=== PATIENT | female | born 1970 | race Caucasian/White ===

== ENCOUNTER 2019-09-30 20:49 | Inpatient (IN) | payer MEDICAID, OTHER ==
[~2019-09-30] VITALS: Ht 180.3 cm; Wt 108.3 kg
[2019-09-30] MEDS ORDERED: DIPH,PERTUSS(ACELL),TET VAC/PF 0.5 ML IM-VACC ONE ×2 (21:30→21:49)
--- NOTE | 2019-09-30 21:47 | NUR ---
Pt resting on gurney. Pt noted to be having anxiety and reports that she takes medications for anxiety and depression, but has not taken them today. Pt given reassurance and is aware of and agreeable to plan of care. Pt reports left chin skin problem worsened within the last 24 hours. Pt reports it drained on its own. Pt noted to have large red, and swollen area on left side of chin.
--- NOTE | 2019-09-30 22:00 | NUR ---
PA at bedside. Tetanus vaccine given. US at bedside.
--- NOTE | 2019-09-30 23:00 | NUR ---
Pt alert and resting at bedside. Friend at bedside.
[2019-09-30] MEDS ORDERED: ONDANSETRON 2MG/ML, 2ML ONE (23:09)
[2019-09-30] MEDS ORDERED: MORPHINE SULFATE 4 MG/ML, 1ML ONE (23:10)
--- NOTE | 2019-09-30 23:25 | NUR ---
PIV placed. Labs and cultures drawn. Admitting MD at bedside.
[2019-09-30] MEDS ORDERED: LISI-167 PO (23:27)
[2019-09-30] MEDS ORDERED: SERT20OR PO (23:29)
[2019-09-30] MEDS ORDERED: [UNRECOGNIZED DRUG - CODE] PO (23:29)
[2019-09-30] MEDS ORDERED: BUPR150T8 PO (23:29)
[2019-09-30] MEDS ORDERED: VANCOMYCIN PER PHARMACY MC ONE (23:30)
[2019-09-30] MEDS ORDERED: VANCOMYCIN 2,000 MG in SODIUM CHLORIDE 0.9% 500 ML IV ONE (23:30)
[2019-09-30] MEDS ORDERED: ONDANSETRON 2MG/ML, 2ML IVPush ONE (23:30)
[2019-09-30] MEDS ORDERED: SODIUM CHLORIDE FLUSH 10ML SYR IVF ONE (23:30)
[2019-09-30] MEDS ORDERED: SODIUM CHLORIDE 0.9% 1,000ML IVBOLUS ONE (23:30)
[2019-09-30] MEDS: MORPHINE SULFATE 4 MG/ML, 1ML IV PRN (23:33)
[2019-09-30 23:37] LABS: BASOPHILS # (AUTO) 0.03 x10^3/uL (0-0.1); BASOPHILS % (AUTO) 0 % (0-1); EOSINOPHILS # (AUTO) 0.39 x10^3/uL (0-0.4); EOSINOPHILS % (AUTO) 3 % (1-7); LYMPHOCYTES # (AUTO) 3.12 x10^3/uL (1-3.4); LYMPHOCYTES % (AUTO) 26 % (22-44); MD NO; MEAN CORPUSCULAR HEMOGLOBIN 25.6 pg (27.0-34.8); MEAN CORPUSCULAR HGB CONC 32.4 g/dL (32.4-35.8); MEAN CORPUSCULAR VOLUME 78.8 fL (80-100); MEAN PLATELET VOLUME 9.5 fL (7.4-10.4); MONOCYTES # (AUTO) 0.78 x10^3/uL (0.2-0.8); MONOCYTES % (AUTO) 7 % (2-9); NEUTROPHILS # (AUTO) 7.71 x10^3/uL (1.8-6.8); NEUTROPHILS % (AUTO) 64 % (42-75); PLATELET COUNT 306 x10^3/uL (130-400); RED BLOOD COUNT 5.09 x10^6/uL (3.82-5.3); RED CELL DISTRIBUTION WIDTH 16.7 % (9.6-15.2)
[2019-09-30 23:46] LABS: ALANINE AMINOTRANSFERASE 26 U/L (12-78); ALBUMIN 3.5 g/dL (3.4-5.0); ANION GAP 6 mmol/L (5-15); CHLORIDE 107 mmol/L (98-107); CREATININE 1.02 mg/dL (0.55-1.02)
--- NOTE | 2019-09-30 23:46 | NUR ---
Pt medicated per MAY. VS retaken. BP remains high. Admitting MD aware. Pt noted to be hyperverbal.
[2019-09-30 23:49] LABS: ALKALINE PHOSPHATASE 98 U/L (45-117); BILIRUBIN,TOTAL 0.4 mg/dL (0.2-1.0); TOTAL PROTEIN 7.8 g/dL (6.4-8.2)
--- NOTE | 2019-09-30 23:53 | NUR ---
Report given to EUGENIO Vigil
[2019-10-01] MEDS ORDERED: METHOCARBAMOL 500 MG TABLET PO PRN
[2019-10-01] MEDS ORDERED: ASA/APAP/ CAFFEINE TABLET PO PRN
[2019-10-01] MEDS ORDERED: DOCUSATE 100 MG CAPSULE PO PRN
[2019-10-01] MEDS ORDERED: morphine SULFATE 10 MG/ML, 1ML IVPush PRN
[2019-10-01] MEDS ORDERED: VANCOMYCIN PER PHARMACY MC PRN
[2019-10-01] MEDS ORDERED: ACETAMINOPHEN 325 MG TABLET PO PRN
[2019-10-01] MEDS ORDERED: GUAIFENESIN/DM 200-20MG, 10ML UDC PO PRN
[2019-10-01] MEDS ORDERED: TEMAZEPAM 15 MG CAPSULE PO PRN
[2019-10-01] MEDS ORDERED: hydrALAzine 20 MG/ML, 1ML IVPush PRN
[2019-10-01] MEDS ORDERED: MORPHINE SULFATE 4 MG/ML, 1ML ONE (00:04)
[2019-10-01] MEDS: MORPHINE SULFATE 4 MG/ML, 1ML IV PRN (00:06)
--- NOTE | 2019-10-01 00:10 | NUR ---
Pt reports first dose of morphine didn't help. Second dose given. Pt remains on pulse ox/HR monitor.
--- NOTE | 2019-10-01 00:15 | NUR ---
Pt transported to floor with plumbing technician.
[2019-10-01 00:37] VITALS: BP 171/119
[2019-10-01] MEDS: ENOXAPARIN 40 MG/0.4 ML SQ SCH (00:56)
[2019-10-01] MEDS: LISINOPRIL 10 MG TABLET PO SCH ×2 (00:57→20:04)
[2019-10-01] MEDS ORDERED: PHARMACOKINETIC CONSULTATION MC ONE (01:00)
[2019-10-01] MEDS ORDERED: PHARMACOKINETIC MONITORING MC PRN (01:00)
[2019-10-01] MEDS: PIPERACILLIN/TAZO/PMX 3.375GM 50 ML IV SCH ×3 (01:32→21:32)
[2019-10-01] MEDS: OXYcodone/APAP 5/325MG TABLET PO PRN ×2 (01:51→20:59)
[2019-10-01 06:44] LABS: BASOPHILS % (AUTO) 1 % (0-1); EOSINOPHILS # (AUTO) 0.35 x10^3/uL (0-0.4); EOSINOPHILS % (AUTO) 3 % (1-7); LYMPHOCYTES # (AUTO) 1.66 x10^3/uL (1-3.4); LYMPHOCYTES % (AUTO) 15 % (22-44); MD NO; MEAN CORPUSCULAR HEMOGLOBIN 24.7 pg (27.0-34.8); MEAN CORPUSCULAR HGB CONC 30.6 g/dL (32.4-35.8); MEAN CORPUSCULAR VOLUME 80.5 fL (80-100); MEAN PLATELET VOLUME 9.3 fL (7.4-10.4); MONOCYTES # (AUTO) 0.63 x10^3/uL (0.2-0.8); MONOCYTES % (AUTO) 6 % (2-9); NEUTROPHILS # (AUTO) 8.31 x10^3/uL (1.8-6.8); NEUTROPHILS % (AUTO) 75 % (42-75); PLATELET COUNT 229 x10^3/uL (130-400); RED BLOOD COUNT 4.27 x10^6/uL (3.82-5.3); RED CELL DISTRIBUTION WIDTH 16.9 % (9.6-15.2)
[2019-10-01 06:54] LABS: ANION GAP 2 mmol/L (5-15); CALCIUM 7.8 mg/dL (8.5-10.1); CHLORIDE 110 mmol/L (98-107); CREATININE 0.78 mg/dL (0.55-1.02); IRON LEVEL 31 mcg/dL (50-170)
[2019-10-01 07:04] LABS: % IRON SATURATION 8 % (20-55); TOTAL IRON BINDING CAPACITY 382 mcg/dL (250-450); TRANSFERRIN 302 mg/dL (200-360)
[2019-10-01 07:08] VITALS: BP 121/78
[2019-10-01] MEDS ORDERED: MORPHINE SULFATE 4 MG/ML, 1ML IVPush PRN (10:00)
[2019-10-01] MEDS: IRON SUCROSE COMPLEX 100MG/5ML IV SCH (10:17)
[2019-10-01] MEDS: SODIUM CHLORIDE 0.9% 1,000 ML IV SCH ×2 (10:18→21:32)
[2019-10-01] MEDS: KETOROLAC 30 MG/1 ML IVPush PRN (10:31)
[2019-10-01] MEDS: ONDANSETRON 2MG/ML, 2ML IVPush PRN (10:31)
[2019-10-01 12:58] VITALS: BP 109/64
[2019-10-01] MEDS: VANCOMYCIN 2,000 MG in SODIUM CHLORIDE 0.9% 500 ML IV SCH (17:17)
[2019-10-01] MEDS: MUPIROCIN OINT 2%, 1 GM APPL. TP SCH (17:19)
[2019-10-01 18:45] VITALS: BP 143/89
[2019-10-01] MEDS ORDERED: LORazepam 2 MG/ML, 1ML IVPush ONE (20:30)
[2019-10-02] MEDS: ENOXAPARIN 40 MG/0.4 ML SQ SCH
[2019-10-02 00:53] VITALS: BP 127/82
[2019-10-02] MEDS: SODIUM CHLORIDE 0.9% 1,000 ML IV SCH (05:28)
[2019-10-02] MEDS: PIPERACILLIN/TAZO/PMX 3.375GM 50 ML IV SCH ×2 (05:28→13:32)
[2019-10-02] MEDS: MUPIROCIN OINT 2%, 1 GM APPL. TP SCH (05:28)
[2019-10-02 05:48] LABS: CALCIUM 8.2 mg/dL (8.5-10.1)
[2019-10-02 05:49] LABS: CREATININE 0.68 mg/dL (0.55-1.02)
[2019-10-02 06:07] LABS: ANION GAP 7 mmol/L (5-15); CHLORIDE 110 mmol/L (98-107)
[2019-10-02 06:12] LABS: BASOPHILS # (AUTO) 0.08 x10^3/uL (0-0.1); BASOPHILS % (AUTO) 1 % (0-1); EOSINOPHILS # (AUTO) 0.37 x10^3/uL (0-0.4); EOSINOPHILS % (AUTO) 5 % (1-7); LYMPHOCYTES # (AUTO) 1.81 x10^3/uL (1-3.4); LYMPHOCYTES % (AUTO) 23 % (22-44); MD NO; MEAN CORPUSCULAR HEMOGLOBIN 25.1 pg (27.0-34.8); MEAN CORPUSCULAR HGB CONC 31.4 g/dL (32.4-35.8); MEAN PLATELET VOLUME 9.8 fL (7.4-10.4); MONOCYTES # (AUTO) 0.47 x10^3/uL (0.2-0.8); MONOCYTES % (AUTO) 6 % (2-9); NEUTROPHILS # (AUTO) 5.13 x10^3/uL (1.8-6.8); NEUTROPHILS % (AUTO) 65 % (42-75); PLATELET COUNT 195 x10^3/uL (130-400); RED BLOOD COUNT 4.44 x10^6/uL (3.82-5.3)
[2019-10-02 06:13] LABS: AMPHETAMINE SCREEN, URINE Positive (Negative); BARBITURATE SCREEN, URINE Negative (Negative); BENZODIAZEPINE SCREEN, URINE Positive (Negative); CANNABINOID SCREEN, URINE Negative (Negative); COCAINE SCREEN, URINE Negative (Negative); METHADONE SCREEN, URINE Negative (Negative); OPIATE SCREEN, URINE Positive (Negative)
[2019-10-02 06:44] VITALS: BP 139/74
[2019-10-02] MEDS: IRON SUCROSE COMPLEX 100MG/5ML IV SCH (10:34)
[2019-10-02] MEDS: VANCOMYCIN 2,000 MG in SODIUM CHLORIDE 0.9% 500 ML IV SCH (11:14)
[2019-10-02] MEDS ORDERED: DOXY100T23 PO (12:11)
[2019-10-02] MEDS ORDERED: AMOX1TAB64 PO (12:12)
[2019-10-02] MEDS: ONDANSETRON 2MG/ML, 2ML IVPush PRN (12:58)
[2019-10-02] MEDS: KETOROLAC 30 MG/1 ML IVPush PRN (12:58)
[2019-10-02 13:40] VITALS: BP 153/95
[2019-10-03] MEDS ORDERED: ARIP2TAB2 PO (07:14)
[2019-10-03] MEDS ORDERED: BUPR300T94 PO (07:14)
[2019-10-03] MEDS ORDERED: SERT100T32 PO (07:14)
== END 2019-10-02 17:22 | disposition home or self-care (01) | DRG 872 ==
LOC: ED 22:22 → EDIP 23:09 → 3N 10-01 00:16
PROVIDERS: ADMIT Internal Medicine; ATTEND Hospitalist
DX: A41.9 Sepsis, unspecified organism (principal); L03.211 Cellulitis of face; I10 Essential (primary) hypertension; F41.9 Anxiety disorder, unspecified; F32.9 Major depressive disorder, single episode, unspecified; F17.210 Nicotine dependence, cigarettes, uncomplicated; D72.829 Elevated white blood cell count, unspecified; R00.0 Tachycardia, unspecified; D50.9 Iron deficiency anemia, unspecified; E66.9 Obesity, unspecified; Z68.31 Body mass index [BMI] 31.0-31.9, adult; Z79.899 Other long term (current) drug therapy
CPT/HCPCS: 36415; 76536; 80048; 80053; 80307; 82728; 83540; 83550; 83605; 84443; 84466; 85025; 87040; 87070; 87077; 87186; 87205; 90471; 90715; 93005; 96374; 99285; G0378; J1650; J1756; J1885; J2405; J2543; J3370; J0360; J2270; J7030; J7040

== ENCOUNTER 2019-10-03 05:00 | Inpatient (IN) | payer OTHER ==
[~2019-10-03] VITALS: Ht 180.3 cm; Wt 100.4 kg
[~2019-10-03 05:00] MED LIST: AMOX1TAB64 PO; BUPR150T8 PO; DOXY100T23 PO; LISI-167 PO; SERT20OR PO; [UNRECOGNIZED DRUG - CODE] PO
--- NOTE | 2019-10-03 05:35 | NUR ---
C/O SOB X1 DAY, PLACED ON CARDIAC AND VITALS SIGNS MONITORS. O2 SAT 89% ON RA. PLACED ON 2L NC, NOW 98%.
[2019-10-03] MEDS ORDERED: ALBUTEROL/IPRATROPIUM 2.5MG/0.5MG, 3 ML ONE (05:57)
[2019-10-03] MEDS ORDERED: FUROSEMIDE 20 MG/2 ML IV ONE (06:00)
[2019-10-03] MEDS ORDERED: LABETALOL 5MG/ML, 20ML IVPush ONE ×2 (06:00→07:30)
[2019-10-03] MEDS ORDERED: ALBUTEROL/IPRATROPIUM 2.5MG/0.5MG, 3 ML NEB ONE (06:00)
[2019-10-03] MEDS ORDERED: NITROGLYCERIN OINT 2%, 1GM TP ONE ×2 (06:00→06:37)
[2019-10-03] MEDS ORDERED: LABETALOL 5MG/ML, 20ML ONE (06:04)
[2019-10-03 06:36] LABS: BASOPHILS # (AUTO) 0.18 x10^3/uL (0-0.1); BASOPHILS % (AUTO) 2 % (0-1); EOSINOPHILS # (AUTO) 0.15 x10^3/uL (0-0.4); EOSINOPHILS % (AUTO) 2 % (1-7); LYMPHOCYTES # (AUTO) 1.45 x10^3/uL (1-3.4); LYMPHOCYTES % (AUTO) 19 % (22-44); MD NO; MEAN CORPUSCULAR HEMOGLOBIN 25.4 pg (27.0-34.8); MEAN CORPUSCULAR HGB CONC 31.6 g/dL (32.4-35.8); MEAN CORPUSCULAR VOLUME 80.4 fL (80-100); MEAN PLATELET VOLUME 9.2 fL (7.4-10.4); MONOCYTES # (AUTO) 0.56 x10^3/uL (0.2-0.8); MONOCYTES % (AUTO) 7 % (2-9); NEUTROPHILS # (AUTO) 5.51 x10^3/uL (1.8-6.8); NEUTROPHILS % (AUTO) 70 % (42-75); PLATELET COUNT 217 x10^3/uL (130-400); RED CELL DISTRIBUTION WIDTH 16.2 % (9.6-15.2)
[2019-10-03] MEDS ORDERED: FUROSEMIDE 20 MG/2 ML ONE (06:37)
[2019-10-03 06:48] LABS: ALANINE AMINOTRANSFERASE 21 U/L (12-78); ALBUMIN 2.9 g/dL (3.4-5.0); ANION GAP 5 mmol/L (5-15); CALCIUM 8.3 mg/dL (8.5-10.1); CHLORIDE 108 mmol/L (98-107)
[2019-10-03 06:53] LABS: ALKALINE PHOSPHATASE 79 U/L (45-117); BILIRUBIN,TOTAL 0.4 mg/dL (0.2-1.0); TOTAL PROTEIN 6.8 g/dL (6.4-8.2); TROPONIN I 0.064 ng/mL (0.000-0.045)
[2019-10-03] MEDS ORDERED: ASPIRIN 81 MG TABLET CHEW PO ONE (07:00)
--- NOTE | 2019-10-03 07:03 | NUR ---
REPORT GIVEN TO BRYSON BECKER.
--- NOTE | 2019-10-03 07:08 | NUR ---
Assume care at this time. MD grayson at bedside to update patient on plan of care. PT agrees to admission. Pt is calm resting with her eyes closed, reports chills, sweating. water given.
[2019-10-03] MEDS ORDERED: SERT100T32 PO (07:14)
[2019-10-03] MEDS ORDERED: ARIP2TAB2 PO (07:14)
[2019-10-03] MEDS ORDERED: BUPR300T94 PO (07:14)
[2019-10-03] MEDS ORDERED: ASPIRIN 81 MG TABLET CHEW ONE (07:16)
[2019-10-03] MEDS ORDERED: ONDANSETRON ODT 4 MG PO PRN (07:30)
[2019-10-03] MEDS ORDERED: ENALAPRILAT 1.25 MG/ML, 2ML IVPush PRN (07:30)
[2019-10-03] MEDS ORDERED: KETOROLAC 30 MG/1 ML IV PRN (07:30)
[2019-10-03] MEDS ORDERED: DOCUSATE 100 MG CAPSULE PO PRN (07:30)
[2019-10-03] MEDS ORDERED: ACETAMINOPHEN 325 MG TABLET PO PRN (07:30)
[2019-10-03] MEDS ORDERED: MELATONIN 5 MG TABLET PO PRN (07:30)
[2019-10-03] MEDS ORDERED: ONDANSETRON 2MG/ML, 2ML IVPush PRN (07:30)
--- NOTE | 2019-10-03 07:35 | NUR ---
PT TO CT
[2019-10-03] MEDS ORDERED: OMNIPAQUE 350 MG/ML, 75ML BOTTLE ONE (07:48)
[2019-10-03] MEDS: METOPROLOL TARTRATE 25 MG TAB PO SCH ×2 (08:15→17:06)
[2019-10-03] MEDS ORDERED: METOPROLOL TARTRATE 25 MG TAB ONE (08:23)
[2019-10-03] MEDS ORDERED: LISINOPRIL 10 MG TABLET PO SCH (09:00)
[2019-10-03] MEDS ORDERED: FAMOTIDINE 10 MG TAB ONE (09:23)
[2019-10-03] MEDS ORDERED: DOXYCYCLINE 100MG TABLET ONE (09:23)
[2019-10-03] MEDS ORDERED: LISINOPRIL 10 MG TABLET ONE (09:23)
[2019-10-03] MEDS ORDERED: AMOXICILLIN/CLAV 875-125MG TABLET ONE (09:23)
[2019-10-03] MEDS ORDERED: SERTRALINE 50MG TABLET ONE (09:24)
[2019-10-03] MEDS: AMOXICILLIN/CLAV 875-125MG TABLET PO SCH ×2 (09:30→20:33)
[2019-10-03] MEDS: FAMOTIDINE 20 MG TABLET PO SCH ×2 (09:30→20:34)
[2019-10-03] MEDS: SERTRALINE 100MG TABLET PO SCH ×2 (09:31→20:33)
[2019-10-03] MEDS: DOXYCYCLINE 100MG CAP PO SCH ×2 (09:31→20:35)
--- NOTE | 2019-10-03 09:42 | NUR ---
PT ON A HOSPITAL BED, TOOK PT OFF SPO2 AND WENT TO 85%. NOW ON 2 l NC AT 98%.
--- NOTE | 2019-10-03 10:05 | NUR ---
DIET TRAY GIVEN
[2019-10-03] MEDS: ARIPIPRAZOLE 2 MG TABLET PO SCH (11:04)
[2019-10-03] MEDS: BUPROPION SR 150 MG TABLET PO SCH (11:04)
--- NOTE | 2019-10-03 12:13 | NUR ---
BREAK RN NOTE: MD ZAMORA NOTIFIED PT'S BP IS 201/125, TRENDING UP. ORDER RECEIVED FOR PRN HYDRALAZINE.
[2019-10-03] MEDS ORDERED: hydrALAzine 20 MG/ML, 1ML ONE (12:17)
[2019-10-03] MEDS: hydrALAzine 20 MG/ML, 1ML IV PRN (12:23)
--- NOTE | 2019-10-03 12:30 | NUR ---
BREAK RN NOTE: PT MEDICATED PER EMAR, TOLERATED WELL. PT A&O, RESPS EVEN AND UNLABORED, PT DENIES PAIN. PT ASSISTED TO BSC TO VOID. REPORT GIVEN BACK TO PRIMARY RN BRYOSN.
--- NOTE | 2019-10-03 15:06 | NUR ---
PT REPORTS THAT SHE TOOK METH WHEN SHE WAS DISCHARGED YESTERDAY.
[2019-10-03] MEDS ORDERED: FAMOTIDINE 40 MG TABLET ONE (20:26)
[2019-10-03 21:10] VITALS: BP 150/91
[2019-10-04 01:47] VITALS: BP 166/96
[2019-10-04] MEDS ORDERED: FUROSEMIDE 20 MG/2 ML IV ONE (06:00)
[2019-10-04] MEDS: METOPROLOL TARTRATE 25 MG TAB PO SCH ×2 (06:23→17:35)
[2019-10-04 06:39] LABS: BASOPHILS # (AUTO) 0.07 x10^3/uL (0-0.1); BASOPHILS % (AUTO) 1 % (0-1); EOSINOPHILS # (AUTO) 0.25 x10^3/uL (0-0.4); EOSINOPHILS % (AUTO) 4 % (1-7); LYMPHOCYTES # (AUTO) 1.58 x10^3/uL (1-3.4); LYMPHOCYTES % (AUTO) 24 % (22-44); MD NO; MEAN CORPUSCULAR HEMOGLOBIN 25.5 pg (27.0-34.8); MEAN CORPUSCULAR HGB CONC 31.9 g/dL (32.4-35.8); MEAN CORPUSCULAR VOLUME 79.8 fL (80-100); MEAN PLATELET VOLUME 9.3 fL (7.4-10.4); MONOCYTES # (AUTO) 0.53 x10^3/uL (0.2-0.8); MONOCYTES % (AUTO) 8 % (2-9); NEUTROPHILS # (AUTO) 4.14 x10^3/uL (1.8-6.8); NEUTROPHILS % (AUTO) 63 % (42-75); PLATELET COUNT 250 x10^3/uL (130-400); RED BLOOD COUNT 4.46 x10^6/uL (3.82-5.3); RED CELL DISTRIBUTION WIDTH 16.5 % (9.6-15.2)
[2019-10-04 06:42] LABS: ANION GAP 4 mmol/L (5-15); CHLORIDE 108 mmol/L (98-107); CREATININE 0.67 mg/dL (0.55-1.02)
[2019-10-04 06:44] VITALS: BP 162/89
[2019-10-04] MEDS ORDERED: FAMOTIDINE 40 MG TABLET ONE ×2 (09:14→20:24)
[2019-10-04] MEDS ORDERED: LISINOPRIL 10 MG TABLET ONE (09:15)
[2019-10-04] MEDS: FAMOTIDINE 20 MG TABLET PO SCH ×2 (09:28→20:35)
[2019-10-04] MEDS: ARIPIPRAZOLE 2 MG TABLET PO SCH (09:28)
[2019-10-04] MEDS: DOXYCYCLINE 100MG CAP PO SCH (09:29)
[2019-10-04] MEDS: SERTRALINE 100MG TABLET PO SCH ×2 (09:29→20:35)
[2019-10-04] MEDS: BUPROPION SR 150 MG TABLET PO SCH (09:29)
[2019-10-04] MEDS: AMLODIPINE 5 MG TABLET PO SCH ×2 (09:29→20:35)
[2019-10-04] MEDS: AMOXICILLIN/CLAV 875-125MG TABLET PO SCH (09:29)
[2019-10-04] MEDS: LISINOPRIL 20 MG TABLET PO SCH (09:30)
[2019-10-04 12:34] VITALS: BP 177/102
[2019-10-04] MEDS: CLINDAMYCIN 150 MG CAPSULE PO SCH ×3 (13:41→20:35)
[2019-10-04] MEDS: CLINDAMYCIN 300 MG CAPSULE PO SCH ×3 (13:41→20:35)
[2019-10-04] MEDS: MUPIROCIN OINT 2%, 1 GM APPL. TP SCH ×2 (13:42→20:36)
[2019-10-04] MEDS ORDERED: POTASSIUM CHLORIDE 20 MEQ TAB.ER.PRT PO ONE (15:30)
[2019-10-04 16:00] VITALS: BP_SYST 173; BP_SYST 181; BP_DIAS 122; BP_DIAS 127
[2019-10-04] MEDS: hydrALAzine 20 MG/ML, 1ML IV PRN (16:22)
[2019-10-04 16:23] LABS: TROPONIN I 0.038 ng/mL (0.000-0.045)
[2019-10-04 16:59] VITALS: BP 162/92
[2019-10-04] MEDS: FUROSEMIDE 40 MG/4 ML IV SCH (17:35)
[2019-10-04 19:45] VITALS: BP 152/90
[2019-10-04] MEDS ORDERED: MUPIROCIN OINT 2%, 1 GM APPL. TP SCH (21:00)
[2019-10-05 00:30] VITALS: BP 146/98
[2019-10-05] MEDS: METOPROLOL TARTRATE 25 MG TAB PO SCH ×2 (06:17→17:36)
[2019-10-05] MEDS: ASPIRIN 81 MG TABLET EC PO SCH (06:17)
[2019-10-05 07:02] VITALS: BP 130/79
[2019-10-05] MEDS ORDERED: FAMOTIDINE 40 MG TABLET ONE ×2 (08:22→21:05)
[2019-10-05 09:21] LABS: ANION GAP 5 mmol/L (5-15); CALCIUM 9.3 mg/dL (8.5-10.1); CHLORIDE 105 mmol/L (98-107); CREATININE 0.78 mg/dL (0.55-1.02)
[2019-10-05] MEDS: BUPROPION SR 150 MG TABLET PO SCH (10:37)
[2019-10-05] MEDS: SERTRALINE 100MG TABLET PO SCH ×2 (10:38→21:09)
[2019-10-05] MEDS: LISINOPRIL 20 MG TABLET PO SCH (10:38)
[2019-10-05] MEDS: CLINDAMYCIN 300 MG CAPSULE PO SCH ×3 (10:38→21:09)
[2019-10-05] MEDS: MUPIROCIN OINT 2%, 1 GM APPL. TP SCH ×2 (10:38→21:00)
[2019-10-05] MEDS: AMLODIPINE 5 MG TABLET PO SCH ×2 (10:38→21:09)
[2019-10-05] MEDS: CLINDAMYCIN 150 MG CAPSULE PO SCH ×3 (10:38→21:09)
[2019-10-05] MEDS: ARIPIPRAZOLE 2 MG TABLET PO SCH (10:38)
[2019-10-05] MEDS: FUROSEMIDE 40 MG/4 ML IV SCH (10:39)
[2019-10-05] MEDS: FAMOTIDINE 20 MG TABLET PO SCH ×2 (10:39→21:00)
[2019-10-05 12:11] VITALS: BP 124/72
[2019-10-05] MEDS ORDERED: POTASSIUM CHLORIDE 20 MEQ TAB.ER.PRT PO ONE (12:30)
[2019-10-05] MEDS ORDERED: POTASSIUM CHLORIDE 20 MEQ TAB.ER.PRT ONE (17:32)
[2019-10-05 21:02] VITALS: BP 147/97
[2019-10-06 00:23] VITALS: BP 99/65
[2019-10-06] MEDS: ASPIRIN 81 MG TABLET EC PO SCH (05:44)
[2019-10-06] MEDS: METOPROLOL TARTRATE 25 MG TAB PO SCH ×2 (05:44→17:33)
[2019-10-06 07:45] VITALS: BP 118/73
[2019-10-06] MEDS ORDERED: FAMOTIDINE 40 MG TABLET ONE (07:55)
[2019-10-06] MEDS: POTASSIUM CHLORIDE 20 MEQ TAB.ER.PRT PO SCH (08:01)
[2019-10-06] MEDS: AMLODIPINE 5 MG TABLET PO SCH ×2 (08:01→20:30)
[2019-10-06] MEDS: BUPROPION SR 150 MG TABLET PO SCH (08:01)
[2019-10-06] MEDS: CLINDAMYCIN 300 MG CAPSULE PO SCH ×2 (08:01→17:32)
[2019-10-06] MEDS: FAMOTIDINE 20 MG TABLET PO SCH ×2 (08:02→20:30)
[2019-10-06] MEDS: ARIPIPRAZOLE 2 MG TABLET PO SCH (08:02)
[2019-10-06] MEDS: LISINOPRIL 20 MG TABLET PO SCH (08:02)
[2019-10-06] MEDS: SERTRALINE 100MG TABLET PO SCH ×2 (08:02→20:30)
[2019-10-06] MEDS: FUROSEMIDE 40 MG TABLET PO SCH (08:02)
[2019-10-06] MEDS: MUPIROCIN OINT 2%, 1 GM APPL. TP SCH ×2 (08:03→20:30)
[2019-10-06 08:04] VITALS: BP 132/88
[2019-10-06] MEDS: CLINDAMYCIN 150 MG CAPSULE PO SCH ×2 (09:09→17:32)
[2019-10-06] MEDS ORDERED: REGADENOSON 0.4 MG/5 ML SYRINGE ONE (11:28)
[2019-10-06 13:01] VITALS: BP 127/85
[2019-10-06 16:33] LABS: ANION GAP 5 mmol/L (5-15); CALCIUM 9.1 mg/dL (8.5-10.1); CHLORIDE 105 mmol/L (98-107); CREATININE 0.86 mg/dL (0.55-1.02)
[2019-10-06 17:31] VITALS: BP 118/72
[2019-10-06 20:39] VITALS: BP 137/86
[2019-10-07] MEDS: CLINDAMYCIN 150 MG CAPSULE PO SCH ×3 (00:37→16:09)
[2019-10-07] MEDS: CLINDAMYCIN 300 MG CAPSULE PO SCH ×3 (00:37→16:09)
[2019-10-07 00:40] VITALS: BP 124/85
[2019-10-07] MEDS: ASPIRIN 81 MG TABLET EC PO SCH (06:00)
[2019-10-07] MEDS: METOPROLOL TARTRATE 25 MG TAB PO SCH ×2 (06:00→16:09)
[2019-10-07 09:36] VITALS: BP 140/100
[2019-10-07] MEDS: FAMOTIDINE 20 MG TABLET PO SCH (09:41)
[2019-10-07] MEDS: SERTRALINE 100MG TABLET PO SCH (09:41)
[2019-10-07] MEDS: POTASSIUM CHLORIDE 20 MEQ TAB.ER.PRT PO SCH (09:42)
[2019-10-07] MEDS: LISINOPRIL 20 MG TABLET PO SCH (09:42)
[2019-10-07] MEDS: ARIPIPRAZOLE 2 MG TABLET PO SCH (09:42)
[2019-10-07] MEDS: FUROSEMIDE 40 MG TABLET PO SCH (09:42)
[2019-10-07] MEDS: BUPROPION SR 150 MG TABLET PO SCH (09:42)
[2019-10-07] MEDS: AMLODIPINE 5 MG TABLET PO SCH (09:43)
[2019-10-07] MEDS: MUPIROCIN OINT 2%, 1 GM APPL. TP SCH (09:47)
[2019-10-07 13:26] VITALS: BP 130/85
[2019-10-07] MEDS ORDERED: BUPR150T73 PO (13:49)
[2019-10-07] MEDS ORDERED: METO25TA35 PO (13:49)
[2019-10-07] MEDS ORDERED: AMLO-150 PO (13:49)
[2019-10-07] MEDS ORDERED: ASPI81TA45 PO (13:49)
[2019-10-07] MEDS ORDERED: CLON0.1T22 PO (13:49)
[2019-10-07] MEDS ORDERED: LISI-170 PO (13:49)
[2019-10-07] MEDS ORDERED: CLIN150C14 PO (13:52)
[2019-10-07] MEDS ORDERED: CLIN300C8 PO (13:52)
[2019-10-07] MEDS ORDERED: POTA20TA6 PO (13:52)
[2019-10-07] MEDS ORDERED: FURO20TA3 PO (13:52)
== END 2019-10-07 17:59 | disposition home or self-care (01) | DRG 917 ==
LOC: ED 06:09 → EDIP 07:12 → INTOOBSV 07:12 → 4NE 16:26 → OBSVTOIN 10-05 11:56 → 5SO 10-06 12:18
PROVIDERS: ADMIT Hospitalist; ATTEND Internal Medicine
DX: T50.991A Poisoning by other drugs, medicaments and biological substances, accidental (unintentional), initial encounter (principal); I50.21 Acute systolic (congestive) heart failure; J98.11 Atelectasis; L03.211 Cellulitis of face; Z16.11 Resistance to penicillins; J90 Pleural effusion, not elsewhere classified; I42.7 Cardiomyopathy due to drug and external agent; I11.0 Hypertensive heart disease with heart failure; F41.9 Anxiety disorder, unspecified; F32.9 Major depressive disorder, single episode, unspecified; F17.210 Nicotine dependence, cigarettes, uncomplicated; B95.62 Methicillin resistant Staphylococcus aureus infection as the cause of diseases classified elsewhere; D50.9 Iron deficiency anemia, unspecified; E87.6 Hypokalemia; F15.10 Other stimulant abuse, uncomplicated; I16.0 Hypertensive urgency; J45.909 Unspecified asthma, uncomplicated; R94.31 Abnormal electrocardiogram [ECG] [EKG]; Z80.49 Family history of malignant neoplasm of other genital organs; Z82.49 Family history of ischemic heart disease and other diseases of the circulatory system; Z82.5 Family history of asthma and other chronic lower respiratory diseases; Z79.899 Other long term (current) drug therapy; Z03.818 Encounter for observation for suspected exposure to other biological agents ruled out; Y92.89 Other specified places as the place of occurrence of the external cause
CPT/HCPCS: 36415; 71045; 71275; 78452; 80048; 80053; 83880; 84484; 85025; 85379; 87635; 93005; 93017; 93308; 93321; 93325; G0378; J1940; J2405; J2785; Q9967; A9502; J0360